=== PATIENT | male | born 1960 | race Caucasian/White ===

== ENCOUNTER 2018-10-22 00:32 | Inpatient (IN) ==
--- NOTE | 2018-10-22 00:41 | PROVIDER DOCUMENTATION ---
HPI-Respiratory General - General Chief Complaint: Shortness of Breath Stated Complaint: SHORTNESS OF BREATH Time Seen by Provider: 10/22/18 00:40 Source: patient Allergies/Adverse Reactions: Patient Allergies Allergy/AdvReac Type Severity Reaction Status Date / Time No Known Allergies Allergy Verified 10/22/18 00:41 Home Medications: Home Medication List Medication Instructions Recorded Confirmed Last Taken Type Bupropion HCl 75 mg PO DAILY 09/05/16 03/02/17 03/01/17 History Celecoxib 400 mg PO DAILY 09/05/16 03/02/17 03/01/17 History Folic Acid 1 mg PO DAILY 09/05/16 03/02/17 03/01/17 History Methotrexate 2 ml IM Q7D 09/05/16 03/02/17 02/20/17 History Pantoprazole [Protonix] 40 mg PO DAILY@0700 09/05/16 03/02/17 03/01/17 History Prednisone 5 mg PO EVERY OTHER DAY 09/05/16 03/02/17 02/28/17 History - History of Present Illness-Resp Nature of Presenting Problem: 58 YOM PRESENTS WITH C/O SOB THAT BEGIN THIS AFTERNOON. HE REPORTS THE SOB WORSENED WHEN HE LAYED DOWN TO GO TO SLEEP. HE DENIES CP, FEVER, CHILLS,N/V/D. HE DOES HAVE COPD. HE DENIES ALLERGEN EXPOSURE, SICK CONTACTS. Quality of Pain: reports: none Severity in ED: reports: moderate Onset/Duration: reports: 4-6 hours ago Timing: reports: still present, getting worse (WORSE WHEN HE WENT TO LAY DOWN) Cough Quality/Degree: reports: mild (HAS COPD) Current Respiratory Medication Therapy: Initiated none Modifying Factors: improves with: sitting upright. worse with: lying down Associated Symptoms: reports: cough, shortness of breath, short of breath, wheezing. denies: chest pain/soreness Similar Symptoms Previously?: No Recently seen or treated by another doctor?: No Review of Systems - Adult - REVIEW OF SYSTEMS - ADULT Constitutional: reports: no symptoms reported. denies: see HPI, chills, fever, fatique, night sweats, weight gain, weight loss, other Eyes: reports: no symptoms reported. denies: see HPI, discharge, dry eyes, decreased vision, blurred vision, double vision, eye pain, redness, other Ears, Nose, Mouth & Throat: reports: no symptoms reported. denies: see HPI, ear discharge, ear pain, hearing loss, tinnitus, epistaxis, sinus problem, nose pain, loose teeth, mouth/dental pain, mouth swelling, hoarseness, throat pain, throat swelling, other Cardiovascular: reports: no symptoms reported. denies: see HPI, chest pain, edema, heart murmur, irregular heart rate, orthopnea, palpitations, poor circulation, PND, syncope, other Respiratory: reports: see HPI, chronic cough, shortness of breath, wheezing Gastrointestinal: reports: no symptoms reported. denies: see HPI, abdominal pain, hematemesis, constipation, diarrhea, difficulty swallowing, frequent heartburn, nausea, poor appetite, rectal bleeding, vomiting, other Genitourinary: reports: no symptoms reported. denies: see HPI, dysuria, discharge, frequency, flank pain, frequent UTI's, hematuria, hesitency, incontinence, urinary retention, urgency, other Musculoskeletal: reports: no symptoms reported. denies: see HPI, bone pain, back pain, frequent leg cramps, joint pain, joint swelling, muscle aches, muscle weakness, neck pain, other Integumentary: reports: no symptoms reported. denies: see HPI, hives, hair loss, itching, mole changes, nail changes, rash, skin sores/ulcer, skin thickening, other Neurological: reports: no symptoms reported. denies: see HPI, ataxia, dizziness/vertigo, headache/migraines, loss of balance, numbness, paresthesia, seizure, slurred speech, syncope, tremors, other Psychiatric: reports: no symptoms reported. denies: see HPI, anxiety, anti- depressant use, alcohol/drug dependence, depression, emotional problems, insomnia, panic attacks, suicidal thoughts, other Endocrine: reports: no symptoms reported. denies: see HPI, change in skin pigment, excessive sweating, goiter, cold intolerance, heat intolerance, increased hunger, increased thirst, polyuria, other Hematologic/Lymphatic: reports: no symptoms reported. denies: see HPI, blood clots, easy bruising, low blood count, lymphedema, prolonged bleeding, swollen lymph nodes, transfusions, other Allergic/Immunologic: reports: no symptoms reported. denies: see HPI, allergic reactions, allergic rhinitis, asthma, eczema, food allergy, frequent infections, hay fever, hives, positive PPD, urticaria, other Past History - Adult - PAST MEDICAL HISTORY-ADULT Review of Records: reports: Nursing Assessment Review, Social history reviewed & non-contributory. Cardiovascular: reports: CAD (STENTS IN PLACE), [place] Respiratory: reports: COPD Gastrointestinal: reports: cancer (esophageal) Musculoskeletal: reports: arthritis (RA) - PRIOR SURGERIES/PROCEDURES Surgical/Procedure History: reports: cardiac stent - IMMUNIZATION STATUS Childhood Immunizations: See Nurse Assessment Flu Vaccine: See Nurse Assessment Physical Exam-General - PHYSICAL EXAM-ADULT Initial Vital Signs Reviewed: Yes - CONSTITUTIONAL General Appearance: alert, mild distress - EYES Eyes: PERRL/EOMI - HEAD, EARS, NOSE, MOUTH & THROAT HENMT: normocephalic/atraumatic, moist mucous membranes, normal ENT inspection - NECK Neck: non-tender, full range of motion, supple - RESPIRATORY Respiratory: chest non-tender, crackles, wheezing. negative: lungs clear, no respiratory distress (MILD RESP DISTRESS) - CARDIOVASCULAR Cardiovascular: normal peripheral pulses, tachycardia - GASTROINTESTINAL (ABDOMEN) Abdominal Exam: normal bowel sounds, non tender, soft - LYMPHATIC Lymphatic: no adenopathy - MUSCULOSKELETAL Back Exam: normal inspection Extremity: normal gait - SKIN Integumentary: normal color, normal turgor, warm/dry - NEUROLOGIC Neurologic: grossly normal - PSYCHIATRIC Psych/Mental Status: normal mood/affect, oriented x 3 Progress - PLAN OF CARE/RESULTS Progress/Plan/Lab Results: Vital Signs - 8 hr 10/22/18 00:36 10/22/18 00:45 10/22/18 00:59 Temperature 98.3 F Pulse Rate 130 H 126 H 130 H Respiratory Rate 20 24 Blood Pressure 190/91 119/87 O2 Sat by Pulse Oximetry 94 L 93 L 92 L 10/22/18 02:22 10/22/18 03:49 Temperature Pulse Rate 138 H 130 H Respiratory Rate 30 H Blood Pressure 164/89 141/85 O2 Sat by Pulse Oximetry 94 L 94 L Laboratory Results - last 24 hr 10/22/18 10/22/18 10/22/18 00:52 00:52 00:52 WBC RBC Hgb Hct MCV MCH MCHC RDW Std Deviation Plt Count MPV Immature Gran % (Auto) Neut % (Auto) Lymph % (Auto) Hawkins % (Auto) Eos % (Auto) Baso % (Auto) Immature Gran # (Auto) Neut # (Auto) Lymph # (Auto) Hawkins # (Auto) Eos # (Auto) Baso # (Auto) PT INR PTT (Actin FS) Sodium 138 Potassium 4.5 Chloride 102 Carbon Dioxide 24 L Anion Gap 12 BUN 10 Creatinine 0.7 Estimated GFR/1.73 m2 > 60 BUN/Creatinine Ratio 14 Glucose 113 H Calculated Osmolality 276 Calcium 8.6 L Total Bilirubin 0.40 AST 20 ALT 12 Alkaline Phosphatase 112 Troponin T < 0.010 [id number] Pept 52 Total Protein 6.7 Albumin 4.1 Globulin 3.0 Albumin/Globulin Ratio 2.0 10/22/18 10/22/18 00:52 01:05 WBC 8.19 RBC 4.42 L Hgb 13.8 L Hct 40.4 L MCV 91.4 MCH 31.2 H MCHC 34.2 RDW Std Deviation 15.3 H Plt Count 248 MPV 9.5 Immature Gran % (Auto) 0.2 Neut % (Auto) 82.4 H Lymph % (Auto) 7.0 L Hawkins % (Auto) 8.1 Eos % (Auto) 2.1 Baso % (Auto) 0.2 Immature Gran # (Auto) 0.02 Neut # (Auto) 6.75 H Lymph # (Auto) 0.57 L Hawkins # (Auto) 0.66 H Eos # (Auto) 0.17 Baso # (Auto) 0.02 PT 12.2 INR 0.86 PTT (Actin FS) 24.8 Sodium Potassium Chloride Carbon Dioxide Anion Gap BUN Creatinine Estimated GFR/1.73 m2 BUN/Creatinine Ratio Glucose Calculated Osmolality Calcium Total Bilirubin AST ALT Alkaline Phosphatase Troponin T [id number]-Y-Akijzamivwf Pept Total Protein Albumin Globulin Albumin/Globulin Ratio Orders Category Date Time Status Admit - [facility] Routine AdmDCTranf 10/22/18 04:09 Active Call Admitting on Arrival AT ADMISSION Care 10/22/18 04:09 Active IV Insertion ORDERED Care 10/22/18 04:10 Active Oxygen Therapy- ED Nursing DIRECTED Care 10/22/18 00:41 Active Saline Loc DIRECTED Care 10/22/18 04:09 Active Vital Signs Order ARRIVAL TO ROOM Care 10/22/18 04:09 Active Regular Diet Diet 10/22/18 04:10 Active CHEST-2 VIEWS [RAD] Stat Exams 10/22/18 00:36 Taken BNP [PRO B-NATRIURETIC PEPTIDE] Stat Lab 10/22/18 00:52 Completed CBC WITH ELECTRONIC DIFF [HEME] Stat Lab 10/22/18 00:52 Completed COMPREHENSIVE METABOLIC PANEL [CHEM] Stat Lab 10/22/18 00:52 Completed PROTIME WITH INR [COAG] Stat Lab 10/22/18 01:05 Completed PTT [COAG] Stat Lab 10/22/18 01:05 Completed TROPONIN T Stat Lab 10/22/18 00:52 Completed Acetaminophen [Tylenol] Med 10/22/18 04:09 Ordered 650 mg PO Q6H PRN PRN Albuterol 2.5MG/Ipratrop 0.5MG [Duoneb (A & A)] Med 10/22/18 01:38 Discontinued 12 ml .ROUTE .STK-MED ONE Albuterol 2.5MG/Ipratrop 0.5MG [Duoneb (A & A)] Med 10/22/18 00:39 Discontinu ed 3 ml INH NOW ONE Albuterol 2.5MG/Ipratrop 0.5MG [Duoneb (A & A)] Med 10/22/18 07:30 Ordered 3 ml INH RTQ4H Albuterol [Albuterol Neb] Med 10/22/18 01:40 Discontinued 10 mg INH NOW ONE Ipratropium [place] Neb [Atrovent Neb] Med 10/22/18 01:40 Discontinued 1 mg INH NOW ONE Ondansetron [Zofran] Med 10/22/18 04:09 Ordered 4 mg IV Q4H PRN PRN Prednisone Med 10/22/18 02:57 Discontinued 60 mg PO NOW ONE Aerosol Treatments Routine Oth 10/22/18 00:40 Completed Aerosol Treatments Routine Oth 10/22/18 01:40 Completed Aerosol Treatments Routine Oth 10/22/18 04:10 Active Aerosol Treatments Stat Oth 10/22/18 00:40 Completed Aerosol Treatments Stat Oth 10/22/18 01:40 Completed Aerosol Treatments Stat Oth 10/22/18 04:10 Active Oxygen Device Routine Oth 10/22/18 04:09 Active EKG [EKG] Stat Ther 10/22/18 00:36 Ordered Transfer/Admit Order [TRANSFER] Routine Transfer 10/22/18 04:10 Ordered Result Diagrams: 10/22/18 00:52 10/22/18 00:52 - REASSESSMENT Reassessment #1 Status: other (Pt signed out to me by MASSIEL Sinha pending lab and x-ray results.) Reassessment #2 Status: improving (wheezes improving but continued wheezes and dyspnea despite several nebulized treatments. Likely symptoms due to COPD exacerbation. Will admit for further evaluation and treatment. Discussed case with Dr. Oliver, Hosp italist, who will see and admit pt.) - XRAY 1 XRAY Study: Chest Impression: Normal - CHANGE OF SHIFT REPORT (ED Provider) 1 Report Given and Care Transferred to:: DR MCDONNELL Time of Transfer: 00:48 Items Pending: Labs, XRAY Results, Other (RESP IMPROVEMENT) Departure - Departure Date of Disposition Decision: 10/22/18 Time of Disposition Decision: 03:26 DIAGNOSIS: COPD exacerbation Disposition: ADMITTED INPATIENT 09 Certified Medical Emergency: Emergent Condition: Fair Additional Freetext Instructions: ED Follow Up Instructions: You have been treated by a care provider in the Emergency Department. These instructions are being provided to you so you can have an understanding of how to care for yourself upon discharge. Upon discharge from the Emergency Department, you are responsible for making arrangements for follow-up care by a physician of your choice. Take all prescribed medications as directed. Return to the Emergency Department immediately for any new or worsening symptoms. You may call the Physician Referral phone number at [phone] to obtain a list of Physicians who are taking new patients. - Critical Care Note This patient required my direct & personal management of CC.: No Attestation - Physician/ ANAND Attestation Patient care was provided by Advanced Practice Provider:: No The physician spent face to face time with patient:: Yes Advanced Practice Provider documentation review:: Supervising physician onsite and consulted in the evaluation and care of this patient. The physician did have a face to face encounter with the patient.
[2018-10-22] MEDS: DUONEB (A & A) INH ONE ×2 (00:45→00:46)
[2018-10-22 01:08] LABS: BASO# 0.02 X1000 (0.0-0.2); BASO% 0.2 % (0.0-0.8); EOS# 0.17 X1000 (0.0-0.7); EOS% 2.1 % (0.0-10.0); HEMATOCRIT 40.4 % (42.0-52.0); HEMOGLOBIN 13.8 g/dL (14.0-18.0); IMM GRAN# 0.02 X1000 (0.0-0.04); IMM GRAN% 0.2 % (0.0-0.5); LYMPH# 0.57 X1000 (1.2-3.4); MCH 31.2 PG (27-31); MCHC 34.2 g/dL (33-37); MCV 91.4 FL (81-99); MONO# 0.66 X1000 (0.11-0.59); MONO% 8.1 % (1.7-9.3); MPV 9.5 FL (7.4-10.4); NEUT# 6.75 X1000 (1.4-6.5); NEUT% 82.4 % (42.2-75.2); PLT 248 X1000 (130-400); RBC 4.42 XMIL (4.7-6.1); RDW 15.3 % (11.5-14.5); WBC 8.19 X1000 (4.8-10.8)
[2018-10-22] MEDS ORDERED: DUONEB (A & A) ONE (01:38)
[2018-10-22] MEDS ORDERED: ALBUTEROL NEB INH ONE (01:40)
[2018-10-22] MEDS ORDERED: ATROVENT NEB INH ONE (01:40)
[2018-10-22 01:42] LABS: INR 0.86; PROTIME 12.2 Seconds (11.0-16.0)
[2018-10-22 01:43] LABS: PTT 24.8 Seconds (22.3-41.8)
[2018-10-22 02:16] LABS: AGAP 12; ALBUMIN 4.1 g/dL (3.5-5.0); ALKALINE PHOSPHATASE 112 U/L (32-122); BUN 10 mg/dL (8-22); CALCIUM 8.6 mg/dL (8.8-10.2); CHLORIDE 102 mmol/L (98-107); COSMO 276; CREATININE 0.7 mg/dL (0.7-1.2); ESTIMATED GFR > 60; GLUCOSE 113 mg/dL (70-104); GOT 20 U/L (10-34); GPT 12 U/L (10-44); POTASSIUM 4.5 mmol/L (3.5-5.1); SODIUM 138 mmol/L (136-145); TCO2 24 mmol/L (25-35); TOTAL PROTEIN 6.7 g/dL (6.3-8.3)
[2018-10-22] MEDS ORDERED: PREDNISONE PO ONE (02:57)
[2018-10-22] MEDS ORDERED: TYLENOL PO PRN (04:09)
[2018-10-22] MEDS ORDERED: ZOFRAN IV PRN (04:09)
[2018-10-22] MEDS ORDERED: PNEUMOVAX 23 IM ONE (05:12)
--- NOTE | 2018-10-22 06:22 | Diag Imaging Result Doc PS360 ---
CHEST-2 VIEWS - 10/22/2018 INDICATION: SOB COMPARISON: None FINDINGS: Lungs are hyperexpanded compatible with COPD. There are small bilateral pleural effusions. There is some subtle hazy linear atelectasis or scarring in the lung bases. Otherwise no infiltrates or edema. Heart size and pulmonary vascularity is normal. IMPRESSION: COPD. Bilateral linear atelectasis or scarring. Small bilateral pleural effusions. Electronically signed by Melvin Mclean 10/22/2018 6:20 AM
[2018-10-22] MEDS ORDERED: DUONEB (A & A) INH SCH (07:30)
[2018-10-22] MEDS ORDERED: SALINE LOCK IV FLUID XX ONE (08:44)
[2018-10-22] MEDS: ULTRAM PO SCH ×2 (10:09→21:32)
[2018-10-22] MEDS: FOLIC ACID PO SCH ×2 (10:11→21:32)
[2018-10-22] MEDS: WELLBUTRIN SR PO SCH (10:11)
[2018-10-22] MEDS: SOLU-MEDROL IV SCH ×2 (10:11→16:31)
[2018-10-22] MEDS: NICODERM PATCH TD SCH (10:11)
[2018-10-22] MEDS: CELEBREX PO SCH (10:11)
[2018-10-22] MEDS: LOVENOX SUBQ SCH (10:12)
[2018-10-22] MEDS ORDERED: ATIVAN IV PRN (11:28)
[2018-10-22] MEDS: LASIX IV SCH ×2 (11:51→23:02)
--- NOTE | 2018-10-22 12:43 | EKG Report ---
Test Performed on : 10/22/2018 11:44:33 AM Test Reason : SOB Blood Pressure : / mmHG Vent. Rate : 120 BPM Atrial Rate : 120 BPM P-R Int : 134 ms QRS Dur : 080 ms QT Int : 344 ms P-R-T Axes : 063 034 045 degrees QTc Int : 486 ms Sinus tachycardia. Otherwise normal ECG When compared with ECG of 24-FEB-2017 08:19, No significant change was found Unconfirmed Result
[2018-10-22] MEDS: XOPENEX NEB INH SCH ×2 (16:16→22:24)
[2018-10-22] MEDS: ROCEPHIN 1 GM in NS 50 ML IV SCH (18:02)
--- NOTE | 2018-10-22 20:01 | HISTORY AND PHYSICAL ---
PRIMARY CARE PROVIDER: The patient does not have a primary care provider. CHIEF COMPLAINT: Shortness of breath. HISTORY OF PRESENT ILLNESS: This is a 58-year-old male who states that he had increased shortness of breath after working at the [employer] in the heat yesterday afternoon, and worsened when he would lay down. The patient has known COPD and continues to smoke a half pack per day of cigarettes. The patient denies any chest pain, fever, chills, nausea or vomiting, and no lower extremity edema. PAST MEDICAL HISTORY: CAD and [place] in 2005 with one stent placement; COPD; rheumatoid arthritis; esophageal CA. PAST SURGICAL HISTORY: Includes cardiac stent x1. FAMILY HISTORY: Positive for CAD on father's side. SOCIAL HISTORY: States that he drinks 2-3 beers daily and occasionally more, half pack of cigarettes per day. Denies the use of illicit drugs. 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 ALLERGIES: No known allergies. MEDICATIONS: Home medications include prednisone 5 mg p.o. daily; bupropion 75 mg tablet, 150 mg p.o. daily; celecoxib 200 mg p.o. daily; folic acid 1 mg p.o. b.i.d.; methotrexate; pantoprazole 40 mg p.o. daily; tramadol 50 mg p.o. b.i.d. REVIEW OF SYSTEMS: General: Denies fever, chills or weight change. HEENT: Hoarseness secondary to esophageal CA. Denies dizziness, neck pain or stiffness. Endocrine: Denies excessive thirst, urination, or intolerance to heat or cold. Cardiovascular: Denies palpitations or chest pain. Does express positive PND, positive RITCHIE. Negative lower extremity edema. Respiratory: Positive wheezing. Positive shortness of breath. Gastrointestinal: Denies vomiting, nausea, pain, diarrhea or constipation. : Denies burning, urgency or frequency. Musculoskeletal: Joint pain, muscle pain related to RA. Neurologic: Denies numbness, dizziness, tremors, or syncope. Hematological: Denies bruising. Psychiatric: History of depression. Skin: No rashes or lesions noted. LABORATORY DATA: WBCs are 8.19, hemoglobin and hematocrit are 13.8 and 40.4 with platelets of 248,000. PT of 12.2, INR of 0.86, PTT of 24.8. Sodium 138, potassium 4.5, chloride 102, BUN 10, creatinine of 0.7, glucose 113, calcium 8.6, AST 20, ALT of 12. BNP is 52. DIAGNOSTIC DATA: Chest x-ray impression: COPD, bilateral lingular atelectasis or scarring, some bilateral pleural effusions. PHYSICAL EXAMINATION: VITAL SIGNS: Temperature 98.2 degrees, pulse rate 115, respiratory rate 18, 139/85, 97% on room air. GENERAL: This is a 58-year-old male. HEENT: Normocephalic. PERRLA. Mucous membranes are moist. NECK: No lymphadenopathy. Trachea is midline. No JVD noted. CARDIOVASCULAR: No murmurs, rubs or gallops. Rate and rhythm is regular. RESPIRATORY: Wheezes, bilateral bases. Nonlabored respirations. GASTROINTESTINAL: Soft, nontender, nondistended. Bowel sounds x4 quadrants. NEUROLOGIC: Cranial nerves 2-12 grossly intact. MUSCULOSKELETAL: Strength 5/5 in all 4 extremities. EXTREMITIES: No lower leg edema noted. SKIN: Warm, dry and intact. ASSESSMENT: 1. Chronic obstructive pulmonary disease exacerbation. 2. Rheumatoid arthritis. 3. Tobacco abuse. 4. Alcohol abuse. PLAN: We will admit to Wink. Activity up with assistance. Intake and output, saline lock. Turn, cough and deep breathe. Vital signs q.4 hours. Peak flow b.i.d., incentive spirometer. Regular diet. EKG, BMP and CBC. Tylenol as needed p.r.n. DuoNeb treatments q.4 hours, Zofran as needed p.r.n. Home medications of Wellbutrin 150 mg p.o. daily ordered; celecoxib 200 mg p.o. daily ordered; Lovenox 40 mg subcutaneous for DVT prophylaxis; folic acid 1 mg p.o. b.i.d.; methylprednisolone 80 mg IV q.8; nicotine patch 14 mg TD daily; Protonix 40 mg daily; tramadol 50 mg p.o. b.i.d. Will obtain echo, CXR in AM. Ativan 1mg q2 hours r/t etoh use. ambien 5mg prn for sleep. Further recommendations will be pending per patient's clinical course and response to therapy. Dictated by DEBBI Jorgensen for Clifford Oliver MD cc: Clifford Oliver MD [facility]
[2018-10-22] MEDS: AMBIEN PO PRN (21:45)
[2018-10-23] MEDS: SOLU-MEDROL IV SCH ×4 (00:58→23:45)
--- NOTE | 2018-10-23 01:21 | PROGRESS NOTE ---
DATE: 10/22/2018 SUBJECTIVE: The patient came in with shortness of breath. He has a history of rheumatoid arthritis. I believe he has a history of COPD. He came in with shortness of breath and cough, worsening with lying down to go sleep. No chest pain. He does have a smoking history. Again, he does have rheumatoid arthritis. He is on chronic prednisone therapy of at least 5 mg. He denies productive cough. Denies fevers. Does admit to chills. He came in with some relative tachycardia and tachypnea and was admitted for COPD exacerbation acute. OBJECTIVE: On exam, he still has rhonchi and wheezing diffusely, still a bit tachycardic. PROBLEMS: 1. Acute chronic obstructive pulmonary disease exacerbation. continue breathing treatments, steroids, I am going to add antibiotics just because of his relative risk for infection due to his chronic immunosuppressed state because of chronic prednisone use. 2. Rheumatoid arthritis. Aware. We will continue to monitor. He is on high dose steroids, again. 3. History of coronary artery disease. We will need to make sure there are no issues associated with his heart which he seems expressively concerned about, so we will do serial enzymes and follow. cc: Clifford Oliver MD
[2018-10-23] MEDS: PROTONIX PO SCH (06:48)
--- NOTE | 2018-10-23 07:14 | Diag Imaging Result Doc PS360 ---
CHEST-2 VIEWS - 10/23/2018 INDICATION: copd exac COMPARISON: 10/22/2018 FINDINGS: Stable advanced COPD. Stable blunting of the costophrenic angles. Stable mild scattered interstitial fibrosis. Heart size and pulmonary vascularity remain normal. IMPRESSION: No change from prior. Electronically signed by Melvin Mclean 10/23/2018 7:11 AM
[2018-10-23 07:24] LABS: AGAP 11; BUN 14 mg/dL (8-22); CALCIUM 8.8 mg/dL (8.8-10.2); CHLORIDE 98 mmol/L (98-107); COSMO 274; CREATININE 0.6 mg/dL (0.7-1.2); ESTIMATED GFR > 60; GLUCOSE 162 mg/dL (70-104); POTASSIUM 3.9 mmol/L (3.5-5.1); SODIUM 135 mmol/L (136-145); TCO2 27 mmol/L (25-35)
[2018-10-23 07:29] LABS: HEMATOCRIT 41.9 % (42.0-52.0); HEMOGLOBIN 14.3 g/dL (14.0-18.0); IMM GRAN# 0.01 X1000 (0.0-0.04); IMM GRAN% 0.1 % (0.0-0.5); LYMPH# 0.36 X1000 (1.2-3.4); LYMPH% 4.2 % (20.5-51.1); MCH 30.8 PG (27-31); MCHC 34.1 g/dL (33-37); MCV 90.3 FL (81-99); MONO# 0.29 X1000 (0.11-0.59); MONO% 3.4 % (1.7-9.3); MPV 9.9 FL (7.4-10.4); NEUT# 7.89 X1000 (1.4-6.5); NEUT% 92.3 % (42.2-75.2); PLT 280 X1000 (130-400); RBC 4.64 XMIL (4.7-6.1); RDW 15.4 % (11.5-14.5); WBC 8.55 X1000 (4.8-10.8)
[2018-10-23 08:20] LABS: BANDS 3 % (0-1); LYMPHS 7 % (21-51); MONO 1 % (1-9); SEGS 88 % (42-75)
[2018-10-23 08:21] LABS: HYPOCHROM OCCASIONAL; OVALOCYTES OCCASIONAL; POIKILOCYTOSIS OCCASIONAL
[2018-10-23] MEDS: NICODERM PATCH TD SCH (08:30)
[2018-10-23] MEDS: FOLIC ACID PO SCH ×2 (08:30→20:50)
[2018-10-23] MEDS: WELLBUTRIN SR PO SCH (08:30)
[2018-10-23] MEDS: LOVENOX SUBQ SCH (08:30)
[2018-10-23] MEDS: CELEBREX PO SCH (08:30)
[2018-10-23] MEDS: ULTRAM PO SCH ×2 (08:31→20:51)
[2018-10-23] MEDS ORDERED: METHOTREXATE IM SCH (09:00)
[2018-10-23] MEDS: XOPENEX NEB INH SCH ×3 (09:36→21:20)
--- NOTE | 2018-10-23 16:08 | PROGRESS NOTE ---
DATE: 10/23/2018 SUBJECTIVE: He is still having some breathing difficulty as far as wheezing and rales, but seems to be doing a little bit better today. OBJECTIVE: His blood pressure is 133/77, heart rate of 103, respiratory rate of 20, temperature 97.4 degrees, 96% on room air.Cardiovascular: Regular rate and rhythm. Pulmonary: Bilateral breath sounds with diffuse rhonchi and wheezing. Gastrointestinal: Soft, nontender, nondistended. Bowel sounds are positive. Extremity: No clubbing or cyanosis. Lymphatic: No peripheral edema. Neurological: Exam was nonfocal. LABORATORY DATA: White count is 8, hemoglobin 14, hematocrit 41, platelets 280,000. Basic was normal. PROBLEMS: 1. Chronic obstructive pulmonary disease exacerbation, acute, improving but still not resolved. We will continue breathing treatments, antibiotics. I have decreased his steroids. 2. Rheumatoid arthritis, stable on current medications. 3. Coronary artery disease is stable. We are waiting on a repeat echocardiogram, and we will continue to follow. DISPOSITION: Pending clinical status but still may be another day or two. We will see how things look. cc: Clifford Oliver MD
[2018-10-23] MEDS: ATROVENT NEB INH SCH ×2 (16:26→21:20)
[2018-10-23] MEDS: ROCEPHIN 1 GM in NS 50 ML IV SCH (16:31)
[2018-10-23] MEDS: AMBIEN PO PRN (20:51)
[2018-10-24] MEDS: ATROVENT NEB INH SCH ×4 (03:49→21:54)
[2018-10-24] MEDS: PROTONIX PO SCH (06:51)
[2018-10-24 06:54] LABS: EOS# 0.03 X1000 (0.0-0.7); EOS% 0.3 % (0.0-10.0); HEMATOCRIT 40.6 % (42.0-52.0); HEMOGLOBIN 13.9 g/dL (14.0-18.0); IMM GRAN# 0.03 X1000 (0.0-0.04); IMM GRAN% 0.3 % (0.0-0.5); LYMPH# 0.43 X1000 (1.2-3.4); LYMPH% 4.2 % (20.5-51.1); MCH 31.1 PG (27-31); MCHC 34.2 g/dL (33-37); MCV 90.8 FL (81-99); MONO% 3.9 % (1.7-9.3); MPV 10.1 FL (7.4-10.4); NEUT# 9.44 X1000 (1.4-6.5); NEUT% 91.3 % (42.2-75.2); PLT 300 X1000 (130-400); RBC 4.47 XMIL (4.7-6.1); RDW 15.3 % (11.5-14.5); WBC 10.33 X1000 (4.8-10.8)
[2018-10-24 07:18] LABS: AGAP 11; BUN 20 mg/dL (8-22); CALCIUM 8.2 mg/dL (8.8-10.2); CHLORIDE 100 mmol/L (98-107); COSMO 275; CREATININE 0.6 mg/dL (0.7-1.2); ESTIMATED GFR > 60; GLUCOSE 147 mg/dL (70-104); POTASSIUM 4.1 mmol/L (3.5-5.1); SODIUM 135 mmol/L (136-145); TCO2 25 mmol/L (25-35)
[2018-10-24 07:39] LABS: LYMPHS 5 % (21-51); MONO 3 % (1-9); SEGS 92 % (42-75)
[2018-10-24] MEDS: NICODERM PATCH TD SCH (08:52)
[2018-10-24] MEDS: ULTRAM PO SCH ×2 (08:52→21:22)
[2018-10-24] MEDS: FOLIC ACID PO SCH ×2 (08:52→21:23)
[2018-10-24] MEDS: WELLBUTRIN SR PO SCH (08:52)
[2018-10-24] MEDS: CELEBREX PO SCH (08:52)
[2018-10-24] MEDS: LOVENOX SUBQ SCH (08:53)
[2018-10-24] MEDS: SOLU-MEDROL IV SCH ×3 (09:02→21:23)
[2018-10-24] MEDS: XOPENEX NEB INH SCH ×3 (11:14→21:54)
--- NOTE | 2018-10-24 14:59 | ECHO REPORT ---
ORDER DATE: 10/22/2018 MEASUREMENTS: Septal thickness 1.1 cm. Left ventricular internal diameter end-diastole 4.7. Posterior wall thickness 0.8 cm. Aortic root 2.7 cm. Left atrium 3.1 cm. SUMMARY: 1. Technically difficult study due to limited acoustic window quality. 2. Aortic valve is trileaflet and opens normally on 2-dimensional images. Peak gradient across the aortic valve is less than 10 mmHg. Mitral and tricuspid valves are without evidence of structural abnormality while pulmonic valve is not well demonstrated. The aortic root is normal size. 3. Normal left ventricular dimensions suggested. Estimated left ventricular ejection fraction appears to be at least 60%. No regional wall motion abnormalities are evident. Left atrium, right atrium, and right ventricle are normal in size with grossly preserved right ventricular systolic function. Doppler suggests grade 1 left ventricular diastolic dysfunction. 4. No pericardial effusion. 5. Appearance of inferior vena cava suggests normal central venous pressure. CONCLUSIONS: 1. Technically difficult study. 2. No significant valvular abnormality evident. 3. Normal left ventricular systolic function without wall motion abnormality evident. 4. Grade 1 left ventricular diastolic dysfunction is suggested. cc: Clif Fuentes MD
[2018-10-24] MEDS: ROCEPHIN 1 GM in NS 50 ML IV SCH (16:12)
--- NOTE | 2018-10-24 19:12 | PROGRESS NOTE ---
DATE: 10/24/2018 SUBJECTIVE: Patient has no major complaints. OBJECTIVE: Vital Signs: Blood pressure is 152/88, heart rate of 86, respiratory rate of 18, temperature 97.7 degrees. Cardiovascular: Regular rate and rhythm. Pulmonary: Bilateral breath sounds, clear to auscultation. His breathing though, he still has diffuse end-expiratory wheezes. GI: Soft, nontender, nondistended. Bowel sounds are positive. LABORATORY DATA: White count is 10, hemoglobin and hematocrit 13 and 40, platelets 300,000. Basic looked okay. ASSESSMENT: 1. Acute chronic obstructive pulmonary disease exacerbation, still not improved. I am going to go back up on his steroids, continue breathing treatments. I am going to add Advair to see if we can try to get him a little bit better, because he is still not much improved. Disposition pending his clinical status. 2. Hypertension. Echocardiogram shows questionable diastolic failure here, but I do not see any evidence of fluid overload at this point. We will just be very careful with the rest of his treatments. cc: Clifford Oliver MD
[2018-10-24] MEDS: ADVAIR 250/50 DISKUS INH SCH (20:39)
[2018-10-24] MEDS: AMBIEN PO PRN (21:23)
[2018-10-25] MEDS: SOLU-MEDROL IV SCH ×3 (02:30→17:06)
[2018-10-25] MEDS: ATROVENT NEB INH SCH ×4 (03:17→21:19)
[2018-10-25] MEDS: PROTONIX PO SCH ×2 (05:53→06:50)
[2018-10-25 07:35] LABS: AGAP 9; BUN 19 mg/dL (8-22); CALCIUM 8.4 mg/dL (8.8-10.2); CHLORIDE 98 mmol/L (98-107); COSMO 272; CREATININE 0.6 mg/dL (0.7-1.2); ESTIMATED GFR > 60; GLUCOSE 155 mg/dL (70-104); POTASSIUM 4.5 mmol/L (3.5-5.1); SODIUM 133 mmol/L (136-145); TCO2 26 mmol/L (25-35)
[2018-10-25 07:45] LABS: HEMATOCRIT 40.7 % (42.0-52.0); HEMOGLOBIN 13.8 g/dL (14.0-18.0); IMM GRAN# 0.03 X1000 (0.0-0.04); IMM GRAN% 0.4 % (0.0-0.5); LYMPH# 0.43 X1000 (1.2-3.4); LYMPH% 5.8 % (20.5-51.1); MCH 30.7 PG (27-31); MCHC 33.9 g/dL (33-37); MCV 90.4 FL (81-99); MONO# 0.32 X1000 (0.11-0.59); MONO% 4.3 % (1.7-9.3); MPV 9.6 FL (7.4-10.4); NEUT% 89.5 % (42.2-75.2); PLT 265 X1000 (130-400); RDW 15.1 % (11.5-14.5); WBC 7.38 X1000 (4.8-10.8)
[2018-10-25 08:44] LABS: LYMPHS 6 % (21-51); MONO 4 % (1-9); SEGS 90 % (42-75)
[2018-10-25] MEDS: LOVENOX SUBQ SCH (09:47)
[2018-10-25] MEDS: WELLBUTRIN SR PO SCH (09:48)
[2018-10-25] MEDS: ULTRAM PO SCH (09:48)
[2018-10-25] MEDS: FOLIC ACID PO SCH ×2 (09:48→21:43)
[2018-10-25] MEDS: NICODERM PATCH TD SCH (09:48)
[2018-10-25] MEDS: CELEBREX PO SCH (09:48)
[2018-10-25] MEDS: XOPENEX NEB INH SCH ×3 (09:55→21:19)
[2018-10-25] MEDS: ADVAIR 250/50 DISKUS INH SCH ×2 (09:56→19:53)
[2018-10-25] MEDS ORDERED: MILK OF MAGNESIA PO ONE (14:01)
[2018-10-25] MEDS: ROCEPHIN 1 GM in NS 50 ML IV SCH (17:05)
--- NOTE | 2018-10-25 21:40 | PROGRESS NOTE ---
DATE: 10/25/2018 SUBJECTIVE: Patient notes he is feeling a lot better, still having some shortness of breath, still having some wheezing. Denies any fevers or chills. OBJECTIVE: Vital signs: Temperature 97.8, pulse 97, respiratory rate 18, BP 148/87. General: Patient is awake, alert. He is in minimal respiratory distress. HEENT: Normocephalic. Neck: Supple. Cardiovascular: Regular rate. No murmurs. Chest: Decreased breath sounds, positive wheezing bilaterally. Abdomen: Soft, nondistended. Extremities: Moves all extremities. ASSESSMENT: 1. Chronic obstructive pulmonary disease with exacerbation. 2. Rheumatoid arthritis. 3. Coronary artery disease. 4. Hypertension. PLAN: We will continue patient in hospital, continue Solu-Medrol, although we will decrease him 80 q.6 to 60 q.8, and we will follow. Hopefully home over the next 2 or 3 days. cc: Gustavo Wilkerson MD
[2018-10-25] MEDS: AMBIEN PO PRN (21:43)
[2018-10-26] MEDS: SOLU-MEDROL IV SCH (01:54)
[2018-10-26] MEDS: ULTRAM PO SCH ×2 (02:12→09:33)
[2018-10-26] MEDS: ATROVENT NEB INH SCH (03:30)
[2018-10-26 07:02] LABS: AGAP 10; BUN 21 mg/dL (8-22); CALCIUM 8.2 mg/dL (8.8-10.2); CHLORIDE 99 mmol/L (98-107); COSMO 272; CREATININE 0.6 mg/dL (0.7-1.2); ESTIMATED GFR > 60; GLUCOSE 145 mg/dL (70-104); POTASSIUM 4.5 mmol/L (3.5-5.1); SODIUM 133 mmol/L (136-145); TCO2 24 mmol/L (25-35)
[2018-10-26] MEDS: PROTONIX PO SCH (07:32)
[2018-10-26 07:34] LABS: HEMATOCRIT 42.6 % (42.0-52.0); HEMOGLOBIN 14.3 g/dL (14.0-18.0); IMM GRAN# 0.03 X1000 (0.0-0.04); IMM GRAN% 0.4 % (0.0-0.5); LYMPH# 0.53 X1000 (1.2-3.4); LYMPH% 6.5 % (20.5-51.1); MCH 30.2 PG (27-31); MCHC 33.6 g/dL (33-37); MCV 90.1 FL (81-99); MONO# 0.43 X1000 (0.11-0.59); MONO% 5.3 % (1.7-9.3); MPV 9.8 FL (7.4-10.4); NEUT# 7.17 X1000 (1.4-6.5); NEUT% 87.8 % (42.2-75.2); PLT 262 X1000 (130-400); RBC 4.73 XMIL (4.7-6.1); WBC 8.16 X1000 (4.8-10.8)
[2018-10-26 07:42] VITALS: BP 175/110
[2018-10-26] MEDS: ADVAIR 250/50 DISKUS INH SCH (08:02)
[2018-10-26] MEDS ORDERED: COZAAR PO SCH (09:00)
[2018-10-26] MEDS ORDERED: MIRALAX PO SCH (09:00)
[2018-10-26 09:34] LABS: EOS 2 % (1-10); LYMPHS 8 % (21-51); SEGS 90 % (42-75)
[2018-10-26] MEDS: NICODERM PATCH TD SCH (09:34)
[2018-10-26] MEDS: WELLBUTRIN SR PO SCH (09:34)
[2018-10-26] MEDS: FOLIC ACID PO SCH (09:34)
[2018-10-26] MEDS: LOVENOX SUBQ SCH (09:34)
[2018-10-26] MEDS: CELEBREX PO SCH (09:34)
[2018-10-26] MEDS ORDERED: SOLU-MEDROL IV SCH (10:00)
--- NOTE | 2018-10-27 01:21 | DISCHARGE SUMMARY ---
ADMISSION DATE: 10/22/2018 DISCHARGE DATE: 10/26/2018 DIAGNOSES: 1. Chronic obstructive pulmonary disease, acute on chronic exacerbation. 2. Rheumatoid arthritis. 3. Tobacco use. 4. Alcohol abuse. 5. History of coronary artery disease. DIAGNOSTICS: 1. Chest x-ray revealed COPD with bilateral atelectasis or scarring. 2. Echocardiogram revealed no significant valvular abnormality. Normal left ventricular systolic function without wall motion abnormality. Grade 1 left ventricular diastolic dysfunction with EF of 60%. HOSPITAL COURSE: Mr. Santos presented to the emergency room complaining of shortness of breath. He works at a [employer] [place] and he stated that when he laid down he would feel more short of breath. He does have COPD. He smokes a pack and a half to 2 packs a day. We did attempt smoking cessation with the patient and he stated that he had no intentions of stopping smoking at this time. He was placed on DuoNebs q.4 hours with incentive spirometer. We continued his appropriate home medications. He was given a nicotine patch. He did state that he did use occasional alcohol although it had been quite some time since his last drink. We did have Ativan for any signs of withdrawal or DTs. Thankfully, he required none. This morning, the patient feels better. He does have some scattered wheezes although they are much improved. He is insistent on going home stating that he can do the same things at home that we do in the hospital. We did discuss the fact that he still had some wheezing. The patient stated that he continued to state that he felt much better and that he wanted to go home. DISCHARGE VITAL SIGNS: Blood pressure is 157/88 with a heart rate of 90, respirations are 20, temperature is 97.9 degrees oral with room air saturations 98%-100%. DISCHARGE PHYSICAL EXAMINATION: Cardiovascular: Regular rate and rhythm. S1, S2 appreciated. Calves are nontender bilateral with peripheral pulses palpable. Pulmonary: He does have some scattered expiratory wheezes that have improved since hospitalization. Chest rises and falls symmetrically with respiration. Chest wall is nontender to palpation. Gastrointestinal: Abdomen is soft, nontender, nondistended with bowel sounds in all 4 quadrants. Neurologic: He is alert and oriented x3. DISCHARGE MEDICATIONS: 1. Tylenol 650 q.6 hours p.r.n. 2. Omnicef 300 mg p.o. b.i.d. x5 days. 3. Medrol Dosepak take as directed. 4. Cozaar 50 mg p.o. daily. 5. Advair 50/250 one puff b.i.d. 6. Tramadol 50 mg p.o. b.i.d. 7. Protonix 40 mg p.o. daily. 8. Methotrexate IM every 7 days. 9. Folic acid 1 mg p.o. b.i.d. 10. Meloxicam 200 mg p.o. daily. 11. Bupropion 150 p.o. daily. FOLLOW-UP: 1. With his primary care provider an 1 to 2 weeks sooner if needed. 2. Of note, the patient's primary care provider is Dr. Chun. 3. He has been instructed to call to be seen sooner or return to the ER for any syncope, dizziness, chest pain, palpitations, any productive cough, temperature greater than 101, increasing shortness of breath, PND, orthopnea, nausea, vomiting, diarrhea, constipation, black or bloody vomitus or stools or for any questions or concerns that he may have. 4. He is being discharged home in stable condition with family members. TIME SPENT: This is a greater than 30 minute discharge. Dictated by DEBBI Shannon for Gustavo Wilkerson MD cc: DEBBI Shannon MD
--- NOTE | 2018-10-27 03:24 | DISCHARGE SUMMARY ---
ADMISSION DATE: 10/22/2018 DISCHARGE DATE: 10/26/2018 ADDENDUM: Patient seen and examined by myself. Full note dictated and discussed with nurse practitioner. On discharge, patient is awake, alert. Currently, he is in minimal distress. Patient is adamant that he needs to go home today. Certainly would have preferred him to stay in the hospital another day or 2 and to slowly wean steroids although he has continued to improve. He was admitted to the hospital, placed on steroids, breathing treatments, oxygen. Overall, his symptoms have improved since admission. We will discharge him home after his 2nd dose of Solu- Medrol today. We will continue him on Medrol Dosepak, breathing treatments and antibiotics at home. cc: Gustavo Wilkerson MD
== END 2018-10-26 13:15 | disposition home or self-care (01) | DRG 192 ==
LOC: P.ED 00:32 → SUATTDRO 00:33 → P.MEDSURG 00:33
PROVIDERS: ATTEND Family Medicine
CPT/HCPCS: 71020; 71046; 80048; 80053; 83880; 84484; 85025; 85610; 85730; 93005; 93306; 94640; 94761; 99285; A9270; J0696; J1650; J1940; J2930; J7506; J7512